=== PATIENT | female | born 2000 | race African-American/Black ===

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

== ENCOUNTER 2021-05-29 23:16 | Emergency (ER) | payer MEDICAID ==
[~2021-05-29] VITALS: Ht 172.7 cm; Wt 87.0 kg
[~2021-05-29 23:16] MED LIST: ORPH-16 PO
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
[2021-05-30 00:43] LABS: BARBITURATES NEG (NEG); BENZODIAZEPINES NEG (NEG); CANNABINOIDS NEG (NEG); COCAINE NEG (NEG); METHADONE NEG (NEG); OPIATES NEG (NEG); PHENCYCLIDINE NEG (NEG)
[2021-05-30 00:44] LABS: BILIRUBIN,URINE NEG (NEG); CLARITY,URINE CLEAR; COLOR,URINE YELLOW; GLUCOSE,URINE NEG (NEG); NITRITE,URINE NEG (NEG)
[2021-05-30 00:45] LABS: BACTERIA,URINE 0 /HPF (0-FEW); RBC,URINE 0 /HPF (0-2); SQUAMOUS EPITHELIAL CELL,UR FEW /LPF; WBC,URINE 0 /HPF (0-4)
[2021-05-30 00:46] LABS: AMPHETAMINE/METHAMPHETAMINE NEG (NEG)
[2021-05-30] MEDS ORDERED: KETOROLAC 60 MG/2 ML VIAL. IM ONE (01:00)
--- NOTE | 2021-05-30 01:31 | RAD ---
EXAM: Ct Cervical Spine Without Iv Contrast CLINICAL HISTORY: Reason: neck pain - radiation pain down arms / Spl. Instructions: / History: COMPARISON: None available. TECHNIQUE: Helical CT of the cervical spine was performed. Axial, coronal and sagittal reformatted im ages were also performed. PQRS compliance statement - One or more of the following individualized dose reduction techniques wer e utilized for this study: 1. Automated exposure control 2. Adjustment of the mA and/or kV according to patient size 3. Use of iterative reconstruction technique FINDINGS: Vertebral body heights are preserved. Disc heights are grossly preserved. No spondylolisthesis. No ac edson fracture. Straightening of the normal cervical lordosis IMPRESSION: 1. Negative acute fracture or subluxation. Electronically signed by: Tommie Voss MD (05/30/2021 1:28 AM) [facility]
[2021-05-30 02:00] VITALS: BP 121/79
== END 2021-05-30 02:00 | disposition home or self-care (01) ==
LOC: ER 23:16
DX: G54.2 Cervical root disorders, not elsewhere classified (principal); M79.601 Pain in right arm; R20.0 Anesthesia of skin
CPT/HCPCS: 36415; 72125; 80307; 81001; 81025; 96372; 99284; J1885

== ENCOUNTER 2021-07-31 04:30 | Emergency (ER) | payer MEDICAID ==
[~2021-07-31] VITALS: Ht 172.7 cm; Wt 87.0 kg
--- NOTE | 2021-07-31 04:39 | PHYS DOC ---
Past History Past Medical History: No Pertinent History Past Surgical History: Other Additional Past Surgical Histo: wisdom tooth extracted Smoking: Non-smoker Alcohol Use: None Drug Use: None Adult General Chief Complaint Chief Complaint: ABDOMINAL PAIN HPI HPI Patient is a 20-year-old female, otherwise healthy presents with a chief complaint of dysuria. States that she was diagnosed with a urinary tract infection 2 weeks ago but did not take her antibiotics because she did not think that she actually had a urinary tract infection. States she went to visit friends in [place] and just got back and has had some dysuria over the last day. Denies any recent traumas, fevers, chest pain, shortness of breath, abdominal pain, nausea, vomiting, diarrhea, hematuria or blood in the stool. Denies any vaginal bleeding, discharge or pain. Denies any history of sexually transmitted infections. Review of Systems Review of Systems Review of systems otherwise unremarkable except noted in HPI Allergies Allergies Allergies Coded Allergies Type Severity Reaction Last Updated Verified No Known Drug Allergies 05/26/20 No Physical Exam Physical Exam Constitutional: Well developed, well nourished, no acute distress, non-toxic appearance. [] HENT: Normocephalic, atraumatic, oropharynx moist, no oral exudates, nose normal. [] Eyes: conjunctiva normal, no discharge. [] Neck: Normal range of motion, no tenderness, supple, no stridor. [] Cardiovascular:Heart rate regular rhythm, no murmur [] Lungs & Thorax: Bilateral breath sounds clear to auscultation [] Abdomen: soft, no tenderness, no masses, no pulsatile masses. [] Skin: Warm, dry, no erythema, no rash. [] Back: no CVA tenderness. [] Extremities: No tenderness, no cyanosis, no clubbing, ROM intact, no edema. [] Neurologic: Alert and oriented X 3, normal motor function, normal sensory function, no focal deficits noted. [] Psychologic: Affect normal, judgement normal, mood normal. [] EKG EKG [] Radiology/Procedures Radiology/Procedures [] Heart Score C/O Chest Pain: No Risk Factors: Risk Factors: DM, Current or recent (<one month) smoker, HTN, HLP, family history of CAD, obesity. Risk Scores: Risk Factors: DM, Current or recent (<one month) smoker, HTN, HLP, family history of CAD, obesity. Course & Med Decision Making Course & Med Decision Making Patient is a 20-year-old female presents with dysuria, and recent history of urinary tract infection Vital signs not concerning. Physical exam noted above. Patient given Pyridium and ibuprofen. negative. Urinalysis not suggestive of urinary tract infection but however patient stated she has been taken Bactrim for the last day and a half. Discussed all findings with patient and offered complete work-up with blood, urine, speculum exam, STI work-up and CT. Patient stated she would just try to finish her antibiotics and take some pain medication and see if it goes away, talk to her primary care physician and come back to the ED if she feels that she needs to further work-up. Gave strict return precautions to the ED. Patient grateful, verbalized understanding and agreed with plan of discharge. Dragon Disclaimer Dragon Disclaimer This electronic medical record was generated, in whole or in part, using a voice recognition dictation system. Departure Departure: Impression: Primary Impression: Dysuria Disposition: HOME / SELF CARE / HOMELESS Condition: GOOD Referrals: NICOLLE GARZA MD (PCP) Patient Instructions: Dysuria Additional Instructions: Thank you for coming into the emergency department tonight and allowing us to take care of you. Please read the attached information carefully to go back over some of the things we discussed. As we discussed please finish your antibiotic course, drink plenty of water and take your pain medicine as needed to see if symptoms resolve. Please call your primary care physician on Sunday to discuss your ED visit and set up a follow-up as soon as possible. Please come back to the emergency department immediately with any of the new or concerning symptoms that we discussed. ANGÉLICA RUVALCABA MD Jul 31, 2021 04:39
[2021-07-31 04:53] VITALS: BP 132/77
[2021-07-31] MEDS ORDERED: IBUPROFEN 400 MG TABLET. PO ONE (05:00)
[2021-07-31] MEDS ORDERED: PHENAZOPYRIDINE 200 MG TABLET. PO ONE (05:00)
[2021-07-31 05:13] LABS: BACTERIA,URINE FEW /HPF (0-FEW); BILIRUBIN,URINE SMALL (NEG); CLARITY,URINE CLEAR; COLOR,URINE YELLOW; GLUCOSE,URINE NEG (NEG); NITRITE,URINE NEG (NEG); SQUAMOUS EPITHELIAL CELL,UR FEW /LPF; UROBILINOGEN,URINE 0.2 mg/dL (0.2 mg/dL)
[2021-07-31] MEDS ORDERED: START PACK - traMADol 1 STARTPACK TABLET PO ONE (05:45)
[2021-07-31] MEDS ORDERED: ACETAMINOPHEN/CODEINE 300/30MG 4TABLET STARTPACK. PO ONE (05:45)
== END 2021-07-31 05:46 | disposition home or self-care (01) ==
LOC: ER 04:30
DX: R30.0 Dysuria (principal); Z87.440 Personal history of urinary (tract) infections
CPT/HCPCS: 81001; 81025; 87086; 99284

== ENCOUNTER 2021-08-02 13:16 | Emergency (ER) | payer MEDICAID ==
[~2021-08-02] VITALS: Ht 172.7 cm; Wt 87.0 kg
[2021-08-02 13:41] VITALS: BP 123/67
[2021-08-02] MEDS ORDERED: IV NORMAL SALINE 1,000ML 1,000 ML IV ONE (14:30)
[2021-08-02] MEDS ORDERED: ONDANSETRON PF 4 MG/2 ML VIAL. IVP ONE (14:30)
[2021-08-02] MEDS ORDERED: MORPHINE SULFATE 4 MG/ML DISP.SYRIN. IV ONE (14:30)
[2021-08-02 14:44] LABS: BASO % 0 % (0-3); EOS % 0 % (0-3); HEMATOCRIT 40.1 % (36.0-47.0); HEMOGLOBIN 13.7 g/dL (12.0-15.5); LYMPH # 2.1 x10^3/uL (1.0-4.8); LYMPH % 21 % (24-48); MEAN CORPUSCULAR HEMOGLOBIN 32 pg (25-35); MEAN CORPUSCULAR HGB CONC 34 g/dL (31-37); MEAN CORPUSCULAR VOLUME 93 fL (79-100); MONO # 0.8 x10^3/uL (0.0-1.1); MONO % 9 % (0-9); NEUT # 6.8 x10^3uL (1.8-7.7); NEUT % 70 % (31-73); PLATELET COUNT 249 x10^3/uL (140-400); RED BLOOD COUNT 4.33 x10^6/uL (3.50-5.40); RED CELL DISTRIBUTION WIDTH 12.9 % (11.5-14.5); WHITE BLOOD COUNT 9.7 x10^3/uL (4.0-11.0)
--- NOTE | 2021-08-02 14:46 | PHYS DOC ---
Past History Past Medical History: No Pertinent History (ABIGAIL WEBB APRN) Past Surgical History: Other Additional Past Surgical Histo: wisdom tooth extracted (ABIGAIL WEBB APRN) Smoking: Non-smoker Alcohol Use: None Drug Use: None (ABIGAIL WEBB APRN) General Adult EDM: Chief Complaint: ABDOMINAL PAIN HPI: HPI: Patient is a 20-year-old female who presents with left lower quadrant abdominal pain, nausea and vomiting since Sunday. Denies fever. Patient states that she was seen here 2 days ago and given medication for a UTI. Patient states she has not been taking any of her meds due to being unable to keep anything down. Patient is also reporting still having pain with urination and urgency. Denies abnormal discharge or odor. Denies medical history. (ABIGAIL WEBB APRN) Review of Systems: Review of Systems: ROS At least 10 ROS systems have been reviewed and are negative except as documented in the HPI. General: Negative except as outlined in HPI above. Skin: Negative except as outlined in HPI above. HEENT: Negative except as outlined in HPI above. Neck: Negative except as outlined in HPI above. Respiratory: Negative except as outlined in HPI above.. Cardiovascular: Negative except as outlined in HPI above. Abdomen: Negative except as outlined in HPI above. : Negative except as outlined in HPI above. Back/MSK: Negative except as outlined in HPI above. Neuro: Negative except as outlined in HPI above. Psych: Negative except as outlined in HPI above. (ABIGAIL WEBB APRN) Current Medications: Current Meds: Current Medications Medications (Trade) Dose Ordered Sig/[facility] Start Time Stop Time Status Last Admin Dose Admin Morphine Sulfate (Morphine 4mg Syringe) 4 mg 1X ONCE 08/02/21 14:30 08/02/21 14:31 UNV Ondansetron HCl (Zofran) 4 mg 1X ONCE 08/02/21 14:30 08/02/21 14:31 UNV Sodium Chloride 1,000 ml @ 1,000 mls/hr 1X ONCE 08/02/21 14:30 08/02/21 15:29 UNV (ABIGAIL WEBB APRN) Allergies: Allergies: Allergies Coded Allergies Type Severity Reaction Last Updated Verified No Known Drug Allergies 05/26/20 No (ABIGAIL WEBB APRN) Physical Exam: PE: Constitutional: Well developed, well nourished, no acute distress, non-toxic appearance. [] HENT: Normocephalic, atraumatic, bilateral external ears normal, oropharynx moist, no oral exudates, nose normal. [] Eyes: PERRLA, EOMI, conjunctiva normal, no discharge. [] Neck: Normal range of motion, no tenderness, supple, no stridor. [] Cardiovascular:Heart rate regular rhythm, no murmur [] Lungs & Thorax: Bilateral breath sounds clear to auscultation [] Abdomen: Bowel sounds normal, soft, left lower quadrant tenderness Skin: Warm, dry, no erythema, no rash. [] Back: No tenderness, no CVA tenderness. [] Extremities: No tenderness, no cyanosis, no clubbing, ROM intact, no edema. [] Neurologic: Alert and oriented X 3, normal motor function, normal sensory function, no focal deficits noted. [] Psychologic: Affect normal, judgement normal, mood normal. [] (ABIGAIL WEBB APRN) Current Patient Data: Labs: Laboratory Tests Test 08/02/21 14:23 POC Urine HCG, Qualitative hcg negative (Negative) Vital Signs: Vital Signs Date Time Temp Pulse Resp B/P (MAP) Pulse Ox O2 Delivery O2 Flow Rate FiO2 08/02/21 13:41 98.2 67 16 123/67 (85) 98 Room Air (ABIGAIL WEBB BIN FILLER) EKG: EKG: [] (ABIGAIL WEBB APRN) Radiology/Procedures: Radiology/Procedures: []EXAMINATION: CT ABDOMEN+PELVIS WO CLINICAL HISTORY: Left lower quadrant abdominal pain TECHNIQUE: Imaging of the abdomen and pelvis was performed without intravenous contrast using standard technique, scanning from just above the dome of the diaphragm to the symphysis pubis. Unenhanced imaging is limited for the evaluation of some intra-abdominal and pelvic pathology. CT Dose Reduction Employed: One or more of the following individualized dose reduction techniques were utilized for this examination: 1. Automated exposure control 2. Adjustment of the mA and/or kV according to patient size 3. Use of iterative reconstruction technique. COMPARISON: None FINDINGS: Visualized heart and lungs unremarkable. Liver, gallbladder, pancreas, spleen, and adrenal glands unremarkable. Unenhanced kidneys unremarkable. No urolithiasis or evidence of obstructive uropathy. Minimally filled urinary bladder suboptimally evaluated. Uterus and multifoll icular ovaries within normal limits for patient's age. No dilated bowel. Appendix within normal limits. No abdominal aortic or iliac artery aneurysm. No evidence of acute osseous abnormality. IMPRESSION: No evidence of acute abdominopelvic abnormality. Electronically signed by: Alberto Martinez DO (08/02/2021 3:21 PM) [id number] (ABIGAIL WEBB APRN) Heart Score: C/O Chest Pain: No Risk Factors: Risk Factors: DM, Current or recent (<one month) smoker, HTN, HLP, family history of CAD, obesity. Risk Scores: Score 0 - 3: 2.5% MACE over next 6 weeks - Discharge Home Score 4 - 6: 20.3% MACE over next 6 weeks - Admit for Clinical Observation Score 7 - 10: 72.7% MACE over next 6 weeks - Early Invasive Strategies (ABIGAIL WBEB APRN) Course & Med Decision Making: Course & Med Decision Making Pertinent Labs and Imaging studies reviewed. (See chart for details) [] 20-year-old female presents with left lower quadrant, nausea and vomiting, dysuria. Patient denies taking antibiotics for UTI due to vomiting. Patient was diagnosed in ER with UTI on Sunday. Work-up in ER consisted of labs, urinalysis, urine , CT abdomen and pelvis. All labs unremarkable. CT abdomen and pelvis unremarkable. Urine negative. UA positive for infection. Discussed results with patient. Advised patient she needs to be taking her antibiotic to treat the UTI. Patient states that she understands discharge instructions. Patient is also given Azo to help with symptoms along with Zofran. Advised patient to follow-up with her PCP if symptoms do not improve. Discussed return precautions in length. Patient verbalizes understanding of discharge instructions. Patient is hemodynamically stable upon disposition (ABIGAIL WEBB APRN) Course & Med Decision Making I was the Attending physician on the above date of service of this patient. This patient was evaluated, examined, treated, and dispositioned from the emergency department by the mid-level practitioner. Although I was working at the time , no assistance was requested. Electronically signed, Vibha Lincoln DO (VIBHA LINCOLN DO) Santos Disclaimer: Santos Disclaimer: This electronic medical record was generated, in whole or in part, using a voice recognition dictation system. (WEBB,ABGIAIL BIN FILLER) Departure Departure: Impression: Primary Impression: UTI (urinary tract infection) Qualified Codes: N30.00 - Acute cystitis without hematuria Disposition: HOME / SELF CARE / HOMELESS Condition: STABLE Referrals: NICOLLE GARZA MD (PCP) Patient Instructions: Urinary Tract Infection, [id number] Additional Instructions: You were seen in the emergency room for burning with urination, abdominal pain. All of your labs were unremarkable. CT was unremarkable. Your urine was positive for infection. Sending home with prescription for antibiotic, Zofran, Azo. Please follow-up with Dr. Ann if symptoms do not improve. Return emergency room with worsening symptoms or concerns EMERGENCY DEPARTMENT GENERAL DISCHARGE INSTRUCTIONS Thank you for coming to [facility] (ED) today and trusting us with you care. We trust that you had a positivie experience in our Emergency Department. If you wish to speak to the department management, you may call the director at [phone]. YOUR FOLLOW UP INSTRUCTIONS ARE FOLLOWS: 1. Do you have a private Doctor? If you do not have a private doctor, please ask for a resource list of physicians or clinics that may be able to assist you with follow up care. 2. The Emergency Physician has interpreted your x-rays. The X-Ray specialist will also review them. If there is a change in the findings, you will be notified in 48 hours when at all possible. 3. A lab test or culture has been done, your results will be reviewed and you will be notified if you need a change in treatment. ADDITIONAL INSTRUCTIONS AND INFORMATION: 1. Your care today has been supervised by a physician who is specially trained in emergency care. Many problems require more than one evaluation for a complete diagnosis and treatment. We recommend that you schedule your follow up appointment as recommended to ensure complete treatment of you illness or injury. If you are unable to obtain follow up care and continue to have a problem, or if your condition worsens, we recommend that you return to the ED. 2. We are not able to safely determine your condition over the phone nor are we able to give sound medical advice over the phone. For these safety reasons, if you call for medical advice we will ask you to come to the ED for further evaluation. 3. If you have any questions regarding these discharge instructions please call the ED at [phone]. SAFETY INFORMATION: In the interest of safety, wellness, and injury prevention; we encourage you to wear your sealbelt, if you smoke; quite smoking, and we encourage family to use a protective helmet for bicycling and other sporting events that present an increased risk for head injury. IF YOUR SYMPTOMS WORSEN OR NEW SYMPTOMS DEVELOP, OR YOU HAVE CONCERNS ABOUT YOUR CONDITION; OR IF YOUR CONDITION WORSENS WHILE YOU ARE WAITING FOR YOUR FOLLOW UP APPOINTMENT; EITHER CONTACT YOUR PRIMARY CARE DOCTOR, THE PHYSICIAN WHOSE NAME AND NUMBER YOU WERE GIVEN, OR RETURN TO THE ED IMMEDIATELY. Scripts Nitrofurantoin Monohyd/M-Cryst (MACROBID 100 MG CAPSULE) 100 Mg Capsule 100 CAP PO BID for UTI for 5 Days, #10 CAP Prov: ABIGAIL WEBB APRN 08/02/21 Ondansetron Hcl (ZOFRAN) 4 Mg Tablet 4 MG PO TID PRN PRN for NAUSEA, #9 TAB Prov: ABIGAIL WEBB APRN 08/02/21 ABIGAIL WEBB APRN Aug 02, 2021 14:46 VIBHA LINCOLN DO Aug 03, 2021 15:49
[2021-08-02 14:53] LABS: CALCIUM 8.9 mg/dL (8.5-10.1); CREATININE 1.2 mg/dL (0.6-1.0); POTASSIUM 3.9 mmol/L (3.5-5.1)
[2021-08-02 14:59] LABS: ALBUMIN 3.9 g/dL (3.4-5.0); ALBUMIN/GLOBULIN RATIO 1.2 (1.0-1.7); TOTAL BILIRUBIN 0.4 mg/dL (0.2-1.0); TOTAL PROTEIN 7.1 g/dL (6.4-8.2)
[2021-08-02 15:21] LABS: BACTERIA,URINE FEW /HPF (0-FEW); BILIRUBIN,URINE NEG (NEG); CLARITY,URINE HAZY; COLOR,URINE YELLOW; GLUCOSE,URINE NEG (NEG); NITRITE,URINE NEG (NEG); SQUAMOUS EPITHELIAL CELL,UR MOD /LPF; UROBILINOGEN,URINE 0.2 mg/dL (0.2 mg/dL)
[2021-08-02 15:22] LABS: HYALINE CASTS, URINE FEW /HPF
--- NOTE | 2021-08-02 15:23 | RAD ---
EXAMINATION: CT ABDOMEN+PELVIS WO CLINICAL HISTORY: Left lower quadrant abdominal pain TECHNIQUE: Imaging of the abdomen and pelvis was performed without intravenous contrast using standar d technique, scanning from just above the dome of the diaphragm to the symphysis pubis. Unenhanced i maging is limited for the evaluation of some intra-abdominal and pelvic pathology. CT Dose Reduction Employed: One or more of the following individualized dose reduction techniques wer e utilized for this examination: 1. Automated exposure control 2. Adjustment of the mA and/or kV ac cording to patient size 3. Use of iterative reconstruction technique. COMPARISON: None FINDINGS: Visualized heart and lungs unremarkable. Liver, gallbladder, pancreas, spleen, and adrenal glands unremarkable. Unenhanced kidneys unremarkable. No urolithiasis or evidence of obstructive uropathy. Minimally filled urinary bladder suboptimally evaluated. Uterus and multifollicular ovaries within no rmal limits for patient's age. No dilated bowel. Appendix within normal limits. No abdominal aortic or iliac artery aneurysm. No evidence of acute osseous abnormality. IMPRESSION: No evidence of acute abdominopelvic abnormality. Electronically signed by: Alberto Martinez DO (08/02/2021 3:21 PM) [id number]
[2021-08-02] MEDS ORDERED: NITR100C62 PO (15:43)
[2021-08-02] MEDS ORDERED: ONDA4TAB7 PO (15:43)
[2021-08-02] MEDS ORDERED: PHENAZOPYRIDINE 200 MG TABLET. PO ONE (15:45)
== END 2021-08-02 16:08 | disposition home or self-care (01) ==
LOC: ER 13:16
DX: N30.00 Acute cystitis without hematuria (principal)
CPT/HCPCS: 36415; 74176; 80053; 81001; 81025; 83690; 85025; 87086; 96361; 96374; 96375; 99284; J2270; J2405; J7030